=== PATIENT | female | born 1940 | race Caucasian/White ===

== ENCOUNTER 2022-04-20 11:45 | Inpatient (IN) | payer SELFPAY ==
--- NOTE | 2022-01-05 12:19 | PCIREPORT_ITS ---
This is a test research laboratory manager report.
== END 2022-04-20 17:16 | disposition home or self-care (01) | DRG 305 ==
LOC: PCU 11:48
PROVIDERS: PCP Family Medicine; Visit Provider Internal Medicine
DX: I10 Essential (primary) hypertension (principal)

== ENCOUNTER 2022-11-16 07:55 | Emergency (ER) | payer SELFPAY ==
[2022-11-16 12:43] VITALS: BP 180/80
[2022-11-16] MEDS: TENECTEPLASE 7200 MG IV (12:43)
[2023-02-02 08:51] LABS: Lipase 16 U/L (13-75)
[2023-04-14 15:07] LABS: Anion Gap 7 (5-15); BUN 39 mg/dL (7-18); BUN/Creat Ratio 30.7 RATIO (10-20); Chloride 110 mmol/L (98-107); Creatinine, Serum 1.27 mg/dL (0.55-1.02); EST Glomerular Filtration Rate 43 mL/min (>60); Est Glom Filt Rate - Afr Amer 52 mL/min (>60); Estimated Creatinine Clearance 33.07 ml/min; Glucose 105 mg/dL (74-106); Potassium 3.8 mmol/L (3.5-5.1); Sodium Level 141 mmol/L (136-145)
[2023-04-14 16:46] LABS: Vitamin D,25 Hydroxy 53.2 ng/mL
[2023-04-15 13:46] LABS: Syphilis Antibodies Reactive
[2023-04-15 13:47] LABS: Amphetamine Urine VISTA POSITIVE (<1000 ng/mL); Barbiturate Urine VISTA POSITIVE (< 200 ng/mL); Benzodiazepine Urine VISTA POSITIVE (< 200 ng/mL); Cocaine Urine VISTA POSITIVE (< 300 ng/mL); Ecstacy Urine VISTA NEGATIVE (< 500 ng/mL); Methadone Urine VISTA POSITIVE (< 300 ng/mL); PCP Urine VISTA POSITIVE (< 25 ng/mL); THC Urine VISTA POSITIVE (< 50 ng/mL); Vista UDS pH Range 5
--- NOTE | 2023-11-08 11:03 | PCM.CONS.GEN ---
HPI Consult Data Date of Consult: 11/08/23 HPI Narrative HPI Narrative: LINETTE MONTEJO, is a 82 F who presents [facility] Home Medications lorazepam 0.5 mg tablet 0.5 mg PO TID #10 tabs 11/19/17 [Rx Last Taken Unknown] Allergy/AdvReac Type Severity Reaction Status Date / Time Penicillins Allergy Rash Verified 03/03/21 16:07 Family History (Updated 03/03/21 @ 16:10 by Mireya Mendoza FAMILY MEMBER CARETAKER, FAMILY MEMBER CARETAKER-C) Mother CAD (coronary artery disease) COPD (chronic obstructive pulmonary disease) CVA (cerebral vascular accident) Diabetes Heart disease Hypertension Father Age: 98 CAD (coronary artery disease) COPD (chronic obstructive pulmonary disease) CVA (cerebral vascular accident) Colon cancer Diabetes Heart disease Hypertension Sudden cardiac Social History (Updated 03/03/21 @ 16:13 by Mireya Mendoza FAMILY MEMBER CARETAKER, FAMILY MEMBER CARETAKER-C) adopted: No household members: spouse housing: house number of children: 2 current occupational status: employed 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 current occupational exposures/hazards: No pets and animals: No leisure activities: clubs and music history of recent travel: No sexually active: Yes Smoking Status: Former smoker quit date: 12/08/20 pack-years: 20 Tobacco: How many years used: 20 how long ago did patient quit smokin months ago second hand exposure: No alcohol intake: current alcohol intake frequency: 0-2 drinks per day Alcohol type: beer substance use type: does not use well-balanced diet: rarely or never caffeine: Yes Type: coffee Number of servings: 2 eating out: 4 or more times/week during the past year weight has: remained stable what type of physical activity do you participate in: none duration: 30-45 minutes/day geetha/scientology: Congregational seatbelt use: always do you feel safe at home: Yes Lab / Micro Data 04/14/23 14:51 Capacity Capacity Assessment Tool Patient lacks Decision Making Capacity: unable to understand, reason and deliberate health related choices: Yes Risk to self and or others?: Yes Risk of leaving the patient care unit and or hospital?: Yes Legal Fish Dressing Machine Feeder Reflex Medical hold order details:: IF a medical hold is selected below, a suggested order for a MEDICAL HOLD will reflex upon signing the document. Define type of medical hold:: Legal guardian Next of kin: [place] law dictates a PRIORITY LIST for identifying legal decision-maker/legal next of kin in the following order (LNOK): 1st: The patient?s legal guardian, if any 2nd: The patient's spouse (if status is questionable, consult Risk Management) 3rd: The patient?s adult child(chelsey) (majority, if multiple children) 4th: The patient?s parents 5th: The patient?s adult siblings (majority, if multiple children siblings)
== END 2022-11-16 23:59 | disposition home or self-care (01) ==
LOC: ED 05-21 15:31
PROVIDERS: PCP Family Medicine
DX: Z00.00 Encounter for general adult medical examination without abnormal findings (principal)
CPT/HCPCS: 80048; 80307; 82306; 83690; 86780; 87493; J3101